=== PATIENT | female | born 1990 | race Caucasian/White ===

== ENCOUNTER 2017-09-03 17:13 | Inpatient (IN) | payer MEDICAID ==
[2017-09-03 17:50] LABS: APPEARANCE,URINE CLEAR; BILIRUBIN,URINE NEGATIVE (NEGATIVE); COLOR,URINE YELLOW; GLUCOSE, URINE NEGATIVE (NEGATIVE); KETONES,URINE 80 mg/dL (NEGATIVE); LEUKOCYTE ESTERASE,URINE SMALL (NEGATIVE); NITRITE,URINE NEGATIVE (NEGATIVE); PROTEIN,URINE NEGATIVE (NEGATIVE); URINE SPECIFIC GRAVITY 1.019
[2017-09-03 18:05] LABS: URINE AMPHETAMINES SCREEN NEGATIVE; URINE BARBITURATES SCREEN NEGATIVE; URINE BENZODIAZEPINES SCREEN NEGATIVE; URINE COCAINE SCREEN NEGATIVE; URINE MARIJUANA (THC) SCREEN NEGATIVE; URINE METHADONE SCREEN NEGATIVE; URINE PHENCYCLIDINE SCREEN NEGATIVE
[2017-09-03 18:54] LABS: ABSOLUTE LYMPHOCYTES (AUTO) 1.1 10^3/uL (0.5-4.7); ABSOLUTE NEUT (AUTO) 10.5 10^3/uL (1.7-8.2); BASOPHILS % (AUTO) 0.4 % (0-2); EOSINOPHILS % (AUTO) 0.1 % (0-6); HEMATOCRIT 35.8 % (36.0-47.0); HEMOGLOBIN 12.2 g/dL (12.0-15.5); MEAN CORPUSCULAR HEMOGLOBIN 31.3 pg (27.0-33.4); MEAN CORPUSCULAR HGB CONC 34.2 g/dL (32.0-36.0); MEAN CORPUSCULAR VOLUME 92 fl (80-97); MONOCYTES % (AUTO) 7.7 % (3-13); PLATELET COUNT 190 10^3/uL (150-450); RED BLOOD COUNT 3.91 10^6/uL (3.72-5.28); RED CELL DISTRIBUTION WIDTH 13.4 % (11.5-14.0); SEGMENTED NEUTROPHILS % (AUTO) 82.8 % (42-78); TOTAL CELLS COUNTED % (AUTO) 100 %; WHITE BLOOD COUNT 12.6 10^3/uL (4.0-10.5)
[2017-09-03] MEDS ORDERED: NALBUPHINE HCL INJ 10 MG/1 ML AMPULE IV ONE (19:32)
[2017-09-03] MEDS ORDERED: PROMETHAZINE HCL INJ 25 MG/1 ML VIAL IV ONE (19:33)
[2017-09-03] MEDS ORDERED: PROMETHAZINE HCL INJ 25 MG/1 ML VIAL ONE (19:39)
[2017-09-03] MEDS ORDERED: NALBUPHINE HCL INJ 10 MG/1 ML AMPULE ONE (19:39)
--- NOTE | 2017-09-03 19:50 | Admission Physical ---
Datetime Report Generated by CPN: 09/03/2017 19:50 CURRENT ADMISSION Chief Complaint: Uterine Contractions Indication for Induction: Not Applicable Admit Impression : Term, Intrauterine ; Active Labor; Admit Impression- Other: G1 was primary c/section. G2 successful Admit Plan: Admit to Unit; Initiate Labor Protocol ALLERGIES Medication Allergies: No Medication Allergies: No Known Allergies (09/03/2017) Latex: No Latex Allergies Food Allergies: no Environmental Allergies: no OBSTETRICAL HISTORY EDC: 09/08/2017 00:00 : 6 Para: 2 Term: 2 : 0 SAB: 0 IAB: 3 Ectopic: 0 Livin Cesareans: 1 VBACs: 1 Multiple Births: 0 Gestational Diabetes: No Rh Sensitization: No Incompetent Cervix: No GALI: No Infertility: No ART Treatment: No Uterine Anomaly: No IUGR: No Hx Previous C/S: Yes Macrosomia: Yes Hx Loss/Stillborn: No PIH: No Hx : No Placenta Previa/Abruption: No Depression/PP Depression: No PTL/PROM: No Post Hemorrhage: No Current Procedures: Ultrasound; NST Obstetrical History Comments: sab 9 lbs 2 oz delivery c/s postdates 2013 sab sab had d_c g5- 2015 g6-current SEE RECORDS Alcohol: No Marijuana : No Cocaine: No Other Illicit Drugs: No Cigarettes: Former Smoker. [id number] MEDICAL HISTORY Diabetes: No Blood Transfusion: No Pulmonary Disease (Asthma, TB): No Breast Disease: No Hypertension: No Brush Sander Surgery: No Heart Disease: No Hosp/Surgery: Yes Autoimmune Disorder: No Anesthetic Complications: No Kidney Disease: No Abnormal Pap Smear: No Neuro/Epilepsy: No Psychiatric Disorders: No Other Medical Diseases: No Hepatitis/Liver Disease: No Significant Family History: No Varicosities/Phlebitis: No Trauma/Violence : No Thyroid Dysfunction: No Medical History Comments: c/s x1, x 1, close spaced pregnancies INFECTIOUS HISTORY Gonorrhea: No Genital Herpes: No Chlamydia: No Tuberculosis: No Syphilis: No Hepatitis: No HIV/AIDS Exposure: No Rash or Viral Illness: No HPV: No PHYSICAL EXAM General: Normal HEENT: Normal Neurologic: Normal Thyroid: Normal Heart: Normal Lungs: Normal Breast: Normal Back: Normal Abdomen: Normal Genitourinary Exam: Normal Extremities: Normal DTRs: Normal Pelvic Type: Adequate Vital Signs: Reviewed VAGINAL EXAM Dilatation: 4 Effacement: 100 Station: -1 MEMBRANES Pooling: Negative Membranes: Intact FETUS A EGA: 39.2 Monitoring: External US FHR- Baseline: 150 Variability: Moderate 6-25bpm Accelerations: 15X15 Decelerations: None FHR Category: Category I Estimated Weight (gm): 3600 Presentation: Vertex Admit Comment: counseled with RN Kimberly dawkins regarding risks/benefits/alternatives of . Counseled and encouraged to have epidural in place in case of surgical emergency. Patient declines and requesting iv pain medication instead. Counseled on 0.5% risks of uterine rupture for and patient signed consents outlining risks. Will proceed with . Anesthesia, Peds, and Blood Bank notified by America Roche RN of patient laboring. PLANS FOR LABOR AND DELIVERY Labor and Delivery: None Pain Management: Natural Feeding Preference: Breast Benefit of Breast Feed Discussed: Yes Circumcision: Yes INFORMED CONSENT Signature: with User ID: [email or web address]
[2017-09-03] MEDS ORDERED: RINGERS SOLUTION,LACTATED 1,000 ML IV ONE (20:24)
[2017-09-03] MEDS ORDERED: MISOPROSTOL 0.2 MG TABLET ONE (20:38)
[2017-09-03] MEDS ORDERED: LIDOCAINE 1% INJ-PF (10 MG/ML) 30 ML SDV ONE (20:38)
[2017-09-03] MEDS ORDERED: OXYTOCIN/NORMAL SALINE 20 UNIT/1,000 ML RTUINJ ONE (20:38)
[2017-09-03] MEDS: RINGERS SOLUTION,LACTATED 1,000 ML IV PRN (20:43)
[2017-09-03] MEDS ORDERED: BUPIVACAINE HCL 0.25 % INJ/PF (2.5 MG/1 ML) 30 ML VIAL ONE (23:11)
[2017-09-03] MEDS ORDERED: EPHEDRINE SULFATE INJ 50 MG/1 ML AMPULE ONE (23:11)
[2017-09-03] MEDS ORDERED: FENTANYL/BUPIVACAINE/NS/PF 300 MCG/150 ML RTUINJ EPI ONE (23:11)
[2017-09-03] MEDS ORDERED: FENTANYL CITRATE INJ/PF 100 MCG/2 ML AMPUL ONE (23:17)
[2017-09-04] MEDS: RINGERS SOLUTION,LACTATED 1,000 ML IV PRN ×2 (01:06→01:08)
[2017-09-04] MEDS ORDERED: AMPICILLIN SOD/SULBACTAM 3 GM VIAL ONE (04:04)
[2017-09-04] MEDS ORDERED: ACETAMINOPHEN 325 MG TABLET ONE (04:04)
[2017-09-04] MEDS ORDERED: ACETAMINOPHEN 325 MG TABLET PO ONE (04:23)
[2017-09-04] MEDS ORDERED: GLYCERIN/WITCH HAZEL LEAF 1 EACH MED..PAD TP PRN (04:24)
[2017-09-04] MEDS ORDERED: AMPICILLIN SOD/SULBACTAM 3 GM VIAL IV ONE (04:24)
[2017-09-04] MEDS ORDERED: PROMETHAZINE HCL INJ 25 MG/1 ML VIAL IV PRN (04:24)
[2017-09-04] MEDS ORDERED: ACETAMINOPHEN 650 MG SUPP.RECT PR PRN (04:24)
[2017-09-04] MEDS ORDERED: PROMETHAZINE HCL 25 MG TABLET PO PRN (04:24)
[2017-09-04] MEDS ORDERED: PROMETHAZINE HCL 25 MG SUPP.RECT PR PRN (04:24)
[2017-09-04] MEDS ORDERED: NA PHOS,M-B/NA PHOS,DI-BA (ADULT) 133 ML ENEMA PR PRN (04:24)
[2017-09-04] MEDS ORDERED: MAGNESIUM HYDROXIDE SUSP 30 ML UDCUP PO PRN (04:24)
[2017-09-04] MEDS ORDERED: MEASLES,MUMPS&RUBELLA VACC/PF 0.5 ML VIAL SUBCUT PRN (04:24)
[2017-09-04] MEDS ORDERED: OXYTOCIN/NORMAL SALINE 20 UNIT/1,000 ML RTUINJ IV PRN (04:24)
[2017-09-04] MEDS ORDERED: PSEUDOEPHEDRINE HCL 30 MG TABLET PO PRN (04:24)
[2017-09-04] MEDS ORDERED: DIPHENHYDRAMINE HCL 25 MG CAPSULE PO PRN (04:24)
[2017-09-04] MEDS ORDERED: BENZOCAINE/MENTHOL AEROSOL SPRAY 56 ML TOP PRN (04:24)
[2017-09-04] MEDS ORDERED: DIPH/PERTUSS(ACELL)/TETANUS VAC/PF 0.5 ML SYR (>=10YO) IM PRN (04:24)
[2017-09-04] MEDS ORDERED: ACETAMINOPHEN WITH CODEINE #3 TABLET PO PRN ×2 (04:24)
[2017-09-04] MEDS ORDERED: DIBUCAINE 1% OINTMENT 28 GM TP PRN (04:24)
[2017-09-04] MEDS ORDERED: ZOLPIDEM TARTRATE 5 MG TABLET PO PRN (04:24)
[2017-09-04] MEDS ORDERED: METHYLERGONOVINE MALEATE INJ/PF 0.2 MG/1 ML AMPULE ONE (04:41)
[2017-09-04] MEDS: OXYTOCIN/NORMAL SALINE 20 UNIT/1,000 ML RTUINJ IV PRN ×2 (04:56→05:01)
[2017-09-04] MEDS ORDERED: AMPICILLIN SODIUM/SULBACTAM NA 3 GM in NORMAL SALINE 100 ML IV ONE (05:00)
--- NOTE | 2017-09-04 05:11 | Warning Signs in Babies ---
VOD Warning Signs Datetime Report Generated by [facility]: 09/04/2017 05:11 VOD#608 -Warning Signs in Babies: Needs to be viewed. (09/03/2017 17:25:Jaquelin Hassan RN)
[2017-09-04] MEDS ORDERED: IBUPROFEN 800 MG TABLET ONE (05:29)
[2017-09-04] MEDS ORDERED: PROMETHAZINE HCL INJ 25 MG/1 ML VIAL ONE (05:29)
[2017-09-04] MEDS: IBUPROFEN 800 MG TABLET PO SCH ×3 (05:53→22:06)
[2017-09-04] MEDS: PRENATAL VITAMIN W DHA CAPSULE PO SCH (09:57)
[2017-09-04] MEDS: FAMOTIDINE 20 MG TABLET PO SCH ×2 (09:57→22:06)
[2017-09-04] MEDS: DOCUSATE SODIUM 100 MG CAPSULE PO SCH ×2 (09:58→18:05)
[2017-09-04] MEDS: FERROUS SULFATE 325 MG TABLET PO SCH ×2 (09:58→18:05)
[2017-09-04] MEDS: SENNOSIDES/DOCUSATE 8.6-50 MG 1 EACH TABLET PO SCH (09:58)
--- NOTE | 2017-09-04 21:53 | Delivery Summary ---
Del Sum A-C Datetime Report Generated by CPN: 09/04/2017 21:53 DELIVERY PERSONNEL DELIVERY PERSONNEL: [id number] Delivery Doctor:: Kanchan De La Garza MD Labor and Delivery Nurse:: Jaquelin Hassan RNsolar panel installer Nurse:: Bouchrahalima Estrella, RN MATERNAL INFORMATION Delivery Anesthesia: Epidural Medications After Delivery: Pitocin Bolus-Please Comment Meds After Delivery Comment: Pitocin 20 units/1000 mL NS following placenta Estimated Blood Loss (ml): 200 Maternal Complications: Maternal Fever Complication Details: Fever post-delivery LABOR SUMMARY EDC: 09/08/2017 00:00 No. Babies in Womb: 1 Attempted: Yes Labor Anesthesia: Epidural LABOR INFORMATION Reason for Induction: Not Applicable Onset of Labor: 09/03/2017 18:38 Complete Dilatation: 09/04/2017 03:43 Oxytocin: N/A Group B Beta Strep: negative Antibiotics # of Doses: 0 Antibiotics Time of Last Dose: n/a Steroids Given: None Reason Steroids Not Administered: Not Applicable MEMBRANES Membranes Rupture Method: Artificial Rupture of Membranes: 09/04/2017 01:38 Length of Rupture (hr): 2.42 Amniotic Fluid Color: Clear Amniotic Fluid Amount: Moderate Amniotic Fluid Odor: Normal STAGES OF LABOR Stage 1 hr: 9 Stage 1 min: 5 Stage 2 hr: 0 Stage 2 min: 20 Stage 3 hr: 0 Stage 3 min: 4 Total Time in Labor hr: 9 Total Time in Labor min: 29 VAGINAL DELIVERY Episiotomy: None Laceration #1: None Laceration Extension #1: N/A Laceration Repair: Not Applicable Sponge Count Correct: N/A Sharps Count Correct: N/A CSECTION DELIVERY Primary Indication: N/A Secondary Indication: N/A CSection Incidence: N/A Labor: N/A Elective: N/A CSection Incision: N/A BABY A INFORMATION Delivery Date/Time: 09/04/2017 04:03 Method of Delivery: Vaginal Born in Route : No : Successful Forceps: N/A Vacuum Extraction: N/A Shoulder Dystocia : No PRESENTATION/POSITION BABY A Presentation: Cephalic Cephalic Presentation: Vertex Vertex Position: Right Occipital Anterior Breech Presentation: N/A PLACENTA INFORMATION BABY A Placenta Delivery Time : 09/04/2017 04:07 Placenta Method of Delivery: Spontaneous Placenta Status: Delivered SCORES BABY A Heart Rate 1 min: >100 bpm Resp Effort 1 min: Good Cry Reflex Irritability 1 min: Cough or Sneeze or Pulls Away Muscle Tone 1 min: Active Motion Color 1 min: Blue/Pale Resuscitation Effort 1 min: Tactile Stimulation SCORE 1 MIN: 8 Heart Rate 5 min: >100 bpm Resp Effort 5 min: Good Cry Reflex Irritability 5 min: Cough or Sneeze or Pulls Away Muscle Tone 5 min: Active Motion Color 5 min: Body Bad Axe, Extremities Blue SCORE 5 MIN: 9 INFANT INFORMATION BABY A Gestational Age at Delivery: 39.3 Gestational Status: Full Term- 39- 40.6 Weeks Infant Outcome : Liveborn Infant Condition : Stable Infant Sex: Male IDENTIFICATION BABY A Verification Date/Time: 09/04/2017 05:10 ID Band Number: [id number] Mother's Name Verified: Yes Infant RN Verifying : Royce Garcia _ B. Ring WEIGHT/LENGTH BABY A Birthweight (gm): 3620 Infant Weight (lb): 8 Infant Weight (oz): 0 Infant Length (in): 20.75 Infant Length (cm): 52.71 CORD INFORMATION BABY A No. Cord Vessels: 3 Nuchal Cord : N/A Nuchal Cord- Other: body cord Cord Blood Taken: Yes-For Storage (Mom's Blood type +) Suction: Mouth; Nose ASSESSMENT BABY A Complications: None Physical Findings at Delivery: Molding of the Head; Bruising Physical Findings- Other: intial assessment to be performed by nursery nurse Respirations: Appears Normal Skin to Skin: Yes Escrow Clerk/ALS Called : No Infant Care By: Soledad Estrella RN Transferred To: Remains with Mother BABY B INFORMATION : N/A SIGNATURES Signature: with User ID: [email or web address]
[2017-09-05] MEDS: IBUPROFEN 800 MG TABLET PO SCH ×3 (05:31→22:09)
[2017-09-05 06:49] LABS: HEMATOCRIT 32.8 % (36.0-47.0); HEMOGLOBIN 11.1 g/dL (12.0-15.5); MEAN CORPUSCULAR HEMOGLOBIN 31.8 pg (27.0-33.4); MEAN CORPUSCULAR HGB CONC 33.9 g/dL (32.0-36.0); MEAN CORPUSCULAR VOLUME 94 fl (80-97); PLATELET COUNT 179 10^3/uL (150-450); RED CELL DISTRIBUTION WIDTH 13.9 % (11.5-14.0); WHITE BLOOD COUNT 15.9 10^3/uL (4.0-10.5)
--- NOTE | 2017-09-05 09:49 | PDOC PROGRESS REPORT ---
Subjective-OB Progress Note for:: 09/05/17 Subjective: s/p day #1 Pt doing well, well, lochia is stable, pain well controlled, voiding without difficulty. Pt desires d/c home if baby can be discharged. Physical Exam (OB) Vital Signs: Temp Pulse Resp BP Pulse Ox 97.6 F 94 18 101/58 L 98 09/05/17 08:04 09/05/17 08:04 09/05/17 08:04 09/05/17 07:16 09/05/17 08:04 Intake & Output 09/04/17 09/05/17 09/06/17 06:59 06:59 06:59 Intake Total 1000 Balance 1000 Weight 86.9 kg - PIH/Pre-Eclampsia DTR's: 1 + Clonus: Negative Headache: Absent Epigastric Pain: No Visual Changes: No - Lochia Lochia Amount: Scant < 10 ml Lochia Color: Rubra/Red - Abdomen Description: Tender Hernia Present: No Fundal Description: Firm Fundal Height: u/u - u/2 Objective-Diagnostic Laboratory: 09/05/17 06:34 09/05/17 06:34 WBC 15.9 H RBC 3.50 L Hgb 11.1 L Hct 32.8 L MCV 94 MCH 31.8 MCHC 33.9 RDW 13.9 Plt Count 179 Assessment and Plan(PN) - Assessment and Plan (1) , delivered Is this a current diagnosis for this admission?: Yes Plan: routine pp care desires d/c home, may cancel discharge if baby is not discharged. - Time Spent with Patient Time with patient: Less than 15 minutes Critical Time spent with patient: Less than 15 minutes Medications reviewed and adjusted accordingly: Yes - Disposition Anticipated Discharge: Home Within: within 24 hours
--- NOTE | 2017-09-05 09:50 | PDOC DISCHARGE SUMMARY ---
Final Diagnosis Discharge Date: 09/05/17 - Final Diagnosis (1) , delivered Is this a current diagnosis for this admission?: Yes Discharge Data - Discharge Medication Prescriptions: Docusate Sodium [Colace 100 mg Capsule] 100 mg PO BID #30 capsule Ibuprofen [Motrin 800 mg Tablet] 800 mg PO Q8 #60 tablet Home Medications: Vit,Calc76/Iron/Folic [Prenatabs Rx Tablet] 1 each PO DAILY 09/03/17 Docusate Sodium [Colace 100 mg Capsule] 100 mg PO BID #30 capsule 09/05/17 Ibuprofen [Motrin 800 mg Tablet] 800 mg PO Q8 #60 tablet 09/05/17 Gestational Age: 39.3 Reason(s) for Admission: Onset of Labor Procedures: NST Intrapartum Procedure(s): Spontaneous Vaginal Delivery - [place] Data Baby 1 Male at 1 minute: 8 at 5 minutes: 9 Weight: 3620 kg Home with Mother: Yes Complications: No - Diagnosis Test Laboratory: Temp Pulse Resp BP Pulse Ox 97.6 F 94 18 101/58 L 98 09/05/17 08:04 09/05/17 08:04 09/05/17 08:04 09/05/17 07:16 09/05/17 08:04 09/03/17 09/03/17 09/05/17 17:25 18:35 06:34 RBC 3.91 3.50 L Hgb 12.2 11.1 L Hct 35.8 L 32.8 L Urine Opiates Screen NEGATIVE - Discharge information/Instructions Discharge Activity: Activity As Tolerated, Pelvic Rest, No tub bath Discharge Diet: Regular Disposition: HOME, SELF-CARE Follow up with: [facility] in: 4, Weeks
[2017-09-05] MEDS: SENNOSIDES/DOCUSATE 8.6-50 MG 1 EACH TABLET PO SCH (10:46)
[2017-09-05] MEDS: DOCUSATE SODIUM 100 MG CAPSULE PO SCH ×2 (10:46→17:39)
[2017-09-05] MEDS: FAMOTIDINE 20 MG TABLET PO SCH ×2 (10:46→22:09)
[2017-09-05] MEDS: PRENATAL VITAMIN W DHA CAPSULE PO SCH (10:46)
[2017-09-05] MEDS: FERROUS SULFATE 325 MG TABLET PO SCH ×2 (10:47→17:39)
[2017-09-05 20:45] VITALS: BP 115/63
== END 2017-09-05 22:20 | disposition home or self-care (01) | DRG 774 ==
LOC: LC 17:13 → LR 18:19 → 2S 09-04 06:49
PROVIDERS: ADMIT Obstetrics & Gynecology; ATTEND Obstetrics & Gynecology
PROC: 4A1HXCZ Monitoring of Products of Conception, Cardiac Rate, External Approach (ICD-10-PCS; 2017-09-03)
PROC: 10E0XZZ Delivery of Products of Conception, External Approach (ICD-10-PCS; principal; 2017-09-04)
PROC: 10907ZC Drainage of Amniotic Fluid, Therapeutic from Products of Conception, Via Natural or Artificial Opening (ICD-10-PCS; 2017-09-04)
DX: O34.211 Maternal care for low transverse scar from previous cesarean delivery (principal); O75.2 Pyrexia during labor, not elsewhere classified; O69.82X0 Labor and delivery complicated by other cord entanglement, without compression, not applicable or unspecified; Z87.891 Personal history of nicotine dependence; Z3A.39 39 weeks gestation of pregnancy; Z37.0 Single live birth
CPT/HCPCS: 36415; 80307; 81005; 85025; 85027; 86592; 86850; 86900; 86901; 94760; J0295; J2210; J2300; J2550; J2590; J3010; J3490